=== PATIENT | male | born 1970 | race African-American/Black ===

== ENCOUNTER 2024-01-17 22:09 | Inpatient (IN) | payer SELFPAY ==
[~2024-01-17] VITALS: Ht 167.6 cm; Wt 73.5 kg
[2024-01-18 00:43] LABS: BASOPHILS % (AUTO) 0.5 % (0.0-2.0); EOSINOPHILS % (AUTO) 0.9 % (1.0-6.0); HEMATOCRIT 37.7 % (41-53); HEMOGLOBIN 12.4 g/dL (13.5-17.5); LYMPHOCYTES # (AUTO) 2.3 K/uL (1.0-4.8); MEAN CORPUSCULAR HEMOGLOBIN 31.1 pg (26.0-34.0); MEAN CORPUSCULAR HGB CONC 32.9 G/dL (31.0-37.0); MEAN CORPUSCULAR VOLUME 94 fL (80-100); MONOCYTES # (AUTO) 0.8 K/uL (0.1-1.0); MONOCYTES % (AUTO) 9.9 % (2.0-9.0); NEUTROPHILS # (AUTO) 4.4 K/uL (1.8-7.7); NEUTROPHILS % (AUTO) 58.7 % (40.0-70.0); PLATELET COUNT (AUTO) 217 K/uL (150-450); RED CELL DISTRIBUTION WIDTH 14.1 % (11.5-14.5); WHITE BLOOD COUNT (AUTO) 7.6 K/uL (4.5-11.0)
[2024-01-18 00:53] LABS: ANION GAP 6 mmol/L (8-16); CALCIUM, TOTAL 8.9 mg/dL (8.8-10.5); CARBON DIOXIDE 31 mmol/L (22-29); CHLORIDE 105 mmol/L (98-107); CREATININE 1.47 mg/dL (0.60-1.30); GLOMERULAR FILTR. RATE CALC > 60 mL/min (>60); GLUCOSE,RANDOM 90 mg/dL (70-110); POTASSIUM 4.4 mmol/L (3.5-5.1); SODIUM SERUM 142 mmol/L (136-145); UREA NITROGEN, BLOOD 28 mg/dL (7-18)
[2024-01-18 01:02] LABS: ALCOHOL, BLOOD (SERUM) < 3 mg/dL (0-10)
[2024-01-18 02:57] LABS: COVID AG,FIA SOURCE NASAL SWAB
[2024-01-18 03:03] LABS: SARS-COV2 (COVID) ANTIGEN,FIA Negative (Negative)
[2024-01-18 03:11] LABS: ALCOHOL, URINE DRUG SCREEN NEGATIVE (NEGATIVE); AMPHET/METH SCREEN,URINE NEGATIVE (NEGATIVE); BARBITURATE SCREEN, URINE NEGATIVE (NEGATIVE); BENZODIAZEPINES SCREEN,URINE NEGATIVE (NEGATIVE); CANNABINOID SCREEN,URINE NEGATIVE (NEGATIVE); COCAINE SCREEN,URINE NEGATIVE (NEGATIVE); METHADONE SCREEN, URINE NEGATIVE (NEGATIVE); OPIATE SCREEN,URINE NEGATIVE (NEGATIVE); PHENCYCLIDINE SCREEN,URINE NEGATIVE (NEGATIVE)
[2024-01-18] MEDS: LORazepam 2 MG TABLET PO PRN (18:35)
[2024-01-18 20:13] VITALS: O2SAT 98
[2024-01-18] MEDS: HALOPERIDOL 5 MG TABLET PO PRN (21:01)
[2024-01-18 22:17] VITALS: BP 150/87; PULSE 79; RESP 18; TEMP 98.2; O2SAT 98
[2024-01-18] MEDS ORDERED: ONDANSETRON 4 MG TABLET PO PRN (22:45)
[2024-01-18] MEDS ORDERED: LOPERAMIDE HCL 2 MG CAPSULE PO PRN (22:45)
[2024-01-18] MEDS ORDERED: PETROLATUM,WHITE 28 GM JELLY TP PRN (22:45)
[2024-01-18] MEDS ORDERED: DOCUSATE SODIUM 100 MG CAPSULE PO PRN (22:45)
[2024-01-18] MEDS ORDERED: MAG HYDROX/ALUMINUM HYD/SIMETH ES 30 ML SUSPENSION UDCUP PO PRN (22:45)
[2024-01-18] MEDS ORDERED: ALBUTEROL SULFATE HFA 90 MCG/PUFF 8 GM INHALER IH PRN (22:45)
[2024-01-18] MEDS ORDERED: BENZOCAINE/MENTHOL LOZENGE PO PRN (22:45)
[2024-01-18] MEDS ORDERED: IBUPROFEN 600 MG TABLET PO PRN (22:45)
[2024-01-18] MEDS ORDERED: CloNIDine HCL 0.1 MG TABLET PO PRN (22:45)
[2024-01-18] MEDS ORDERED: MAGNESIUM HYDROXIDE SUSPENSION 30 ML UDCUP PO PRN (22:45)
[2024-01-18] MEDS ORDERED: BACITRACIN 28 GM OINTMENT TP PRN (22:45)
[2024-01-18] MEDS ORDERED: OMEPRAZOLE 20 MG CAPSULE PO PRN (22:45)
[2024-01-18] MEDS: ZOLPIDEM TARTRATE 10 MG TABLET PO PRN (23:58)
[2024-01-19 08:29] VITALS: BP 139/88; PULSE 65; RESP 18; TEMP 97.5; O2SAT 99
[2024-01-19 12:36] LABS: BASOPHILS % (AUTO) 1.1 % (0.0-2.0); EOSINOPHILS % (AUTO) 0.7 % (1.0-6.0); HEMATOCRIT 41.3 % (41-53); HEMOGLOBIN 13.5 g/dL (13.5-17.5); LYMPHOCYTES # (AUTO) 1.5 K/uL (1.0-4.8); MEAN CORPUSCULAR HEMOGLOBIN 31.1 pg (26.0-34.0); MEAN CORPUSCULAR HGB CONC 32.8 G/dL (31.0-37.0); MEAN CORPUSCULAR VOLUME 95 fL (80-100); MONOCYTES # (AUTO) 0.6 K/uL (0.1-1.0); MONOCYTES % (AUTO) 8.3 % (2.0-9.0); NEUTROPHILS # (AUTO) 4.6 K/uL (1.8-7.7); NEUTROPHILS % (AUTO) 67.9 % (40.0-70.0); PLATELET COUNT (AUTO) 205 K/uL (150-450); RED BLOOD CELL COUNT(AUTO) 4.34 MIL/uL (4.50-5.90); RED CELL DISTRIBUTION WIDTH 13.9 % (11.5-14.5); WHITE BLOOD COUNT (AUTO) 6.8 K/uL (4.5-11.0)
[2024-01-19 13:12] LABS: ALANINE AMINOTRANSFERASE 101 U/L (12-78); ALKALINE PHOSPHATASE 69 U/L (46-116); ANION GAP 7 mmol/L (8-16); ASPARTATE AMINOTRANSFERASE 36 U/L (15-37); BILIRUBIN,TOTAL 0.2 mg/dL (0.1-1.0); CALCIUM, TOTAL 8.9 mg/dL (8.8-10.5); CARBON DIOXIDE 29 mmol/L (22-29); CHLORIDE 102 mmol/L (98-107); CREATININE 1.47 mg/dL (0.60-1.30); GLOMERULAR FILTR. RATE CALC > 60 mL/min (>60); GLUCOSE,RANDOM 107 mg/dL (70-110); PHOSPHORUS 2.8 mg/dL (2.5-4.9); SODIUM SERUM 138 mmol/L (136-145); THYROID STIMULATING HORMONE 1.04 uIU/mL (0.36-3.74); TOTAL PROTEIN, SERUM 6.8 g/dL (6.4-8.2); UREA NITROGEN, BLOOD 27 mg/dL (7-18)
[2024-01-19 13:18] LABS: HEMOGLOBIN A1C 5.3 % (3.8-5.6)
[2024-01-19 20:42] VITALS: BP 129/80; PULSE 72; RESP 18; TEMP 97.6
[2024-01-20 08:45] VITALS: PULSE 73; TEMP 97.7
[2024-01-20 08:56] LABS: CHOL/HDL RATIO 2.2 (4.2-7.3)
[2024-01-20 15:54] VITALS: RESP 18
[2024-01-20] MEDS: ACETAMINOPHEN 325 MG TABLET PO PRN (15:58)
[2024-01-20] MEDS: RisperiDONE 3 MG TABLET PO SCH (16:26)
[2024-01-20 16:54] VITALS: RESP 16
[2024-01-20 20:40] VITALS: BP 134/78; PULSE 88; RESP 18; TEMP 97.6; O2SAT 98
[2024-01-21 08:55] VITALS: BP 142/92; PULSE 77; RESP 18; TEMP 98.4; O2SAT 98
[2024-01-21 20:28] VITALS: RESP 18
[2024-01-22 10:20] VITALS: BP 153/96; PULSE 93; RESP 18; TEMP 98.4; O2SAT 99
[2024-01-22] MEDS: FLUTICASONE PROPIONATE 50 MCG/SPRAY 16 GM NASAL SPRAY NASAL PRN (11:09)
[2024-01-22 20:12] VITALS: BP 142/83; PULSE 91; RESP 18; TEMP 96.9; O2SAT 99
[2024-01-23 08:27] VITALS: BP 140/96; PULSE 72; RESP 17; TEMP 96.9; O2SAT 99
[2024-01-23] MEDS ORDERED: RISP3TAB77 PO (12:34)
== END 2024-01-23 15:42 | disposition home or self-care (01) | DRG 885 ==
LOC: EMS 22:10 → 3EC 01-18 20:50
PROVIDERS: ADMIT Psychiatry & Neurology Psychiatry; ATTEND Psychiatry & Neurology Psychiatry
DX: F29 Unspecified psychosis not due to a substance or known physiological condition (principal); I10 Essential (primary) hypertension; R45.850 Homicidal ideations; F20.9 Schizophrenia, unspecified; Z20.822 Contact with and (suspected) exposure to COVID-19; F19.10 Other psychoactive substance abuse, uncomplicated; F32.A Depression, unspecified; F41.9 Anxiety disorder, unspecified; K21.9 Gastro-esophageal reflux disease without esophagitis; G47.00 Insomnia, unspecified; K59.00 Constipation, unspecified; Z87.442 Personal history of urinary calculi; Z72.0 Tobacco use
CPT/HCPCS: 80048; 80053; 80061; 80307; 83036; 83735; 84100; 84443; 85025; 87081; 99285; G0480